=== PATIENT | female | born 1955 | race Caucasian/White ===

== ENCOUNTER → 2016-12-28 | Outpatient (CLI) | payer BC ==
[~2016-12-28] MED LIST: ACET-1311 PO; ATV5 PO
--- NOTE | 2016-12-28 13:25 | MAMMOGRAPHY REPORT ---
BILATERAL DIGITAL SCREENING MAMMOGRAM TOMOSYNTHESIS WITH CAD: 12/28/2016 CLINICAL HISTORY: Routine screening. Patient has no complaints. TECHNIQUE: Breast tomosynthesis in addition to standard 2D mammography was performed. Current study was also evaluated with a Computer Aided Detection (CAD) system. COMPARISON: Comparison is made to exams dated: 12/23/2015 mammogram, 12/14/2014 mammogram, 12/08/2013 mammogram, 12/05/2012 mammogram - [facility], 11/30/2011 mammogram, and 08/01/2010 mamm ogram - [facility]. BREAST COMPOSITION: There are scattered areas of fibroglandular density in both breasts. FINDINGS: No suspicious masses, calcifications, or areas of architectural distortion are noted in e ither breast. There has been no significant interval change compared to prior exams. IMPRESSION: ACR BI-RADS CATEGORY 1: NEGATIVE There is no mammographic evidence of malignancy. A 1 year screening mammogram is recommended. The p atient will receive written notification of the results. Approximately 10% of breast cancers are not detected with mammography. A negative mammographic repor t should not delay biopsy if a clinically suggestive mass is present. Linn Tamayo M.D. ah/:12/28/2016 07:50:25 Motor Vehicle Technician: Rula DE SOUZA(Olvin)(Neal), [facility] letter sent: Normal 1/2 BI-RADS Code: ACR BI-RADS Category 1: Negative
== END | disposition home or self-care (01) ==
LOC: C.MAMM 07:01
PROVIDERS: ATTEND Family Medicine
DX: Z12.31 Encounter for screening mammogram for malignant neoplasm of breast (principal)

== ENCOUNTER → 2017-01-23 | Outpatient (CLI) | payer BC | END | disposition home or self-care (01) | LOC: C.PAPS 11:30 | PROVIDERS: ATTEND Family Medicine | DX: Z01.419 Encounter for gynecological examination (general) (routine) without abnormal findings (principal) ==

== ENCOUNTER → 2018-01-03 | Outpatient (CLI) | payer BC ==
--- NOTE | 2018-01-03 08:02 | MAMMOGRAPHY REPORT ---
BILATERAL DIGITAL SCREENING MAMMOGRAM TOMOSYNTHESIS WITH CAD: 01/03/2018 CLINICAL HISTORY: Routine screening. Patient has no complaints. TECHNIQUE: Breast tomosynthesis in addition to standard 2D mammography was performed. Current study was also evaluated with a Computer Aided Detection (CAD) system. COMPARISON: Comparison is made to exams dated: 12/28/2016 mammogram, 12/23/2015 mammogram, 12/14/2014 ma mmogram, 12/08/2013 mammogram, 12/05/2012 mammogram - [facility], and 08/01/2010 mammog jose d - [facility]. BREAST COMPOSITION: There are scattered areas of fibroglandular density in both breasts. FINDINGS: No suspicious masses, calcifications, or areas of architectural distortion are noted in ei ther breast. There has been no significant interval change compared to prior exams. IMPRESSION: ACR BI-RADS CATEGORY 1: NEGATIVE There is no mammographic evidence of malignancy. A 1 year screening mammogram is recommended. The pa tient will receive written notification of the results. Approximately 10% of breast cancers are not detected with mammography. A negative mammographic report should not delay biopsy if a clinically suggestive mass is present. Linn Tamayo M.D. /:01/03/2018 07:34:27 Accountant Cost: Karen Quiroga, [facility] letter sent: Normal 1/2 BI-RADS Code: ACR BI-RADS Category 1: Negative
== END | disposition home or self-care (01) ==
LOC: C.MAMM 07:07
PROVIDERS: ATTEND Family Medicine
DX: Z12.31 Encounter for screening mammogram for malignant neoplasm of breast (principal)

== ENCOUNTER → 2018-01-24 | Outpatient (CLI) | payer BC, OTHER | END | disposition home or self-care (01) | LOC: C.PAPS 11:39 | PROVIDERS: ATTEND Family Medicine | DX: Z12.72 Encounter for screening for malignant neoplasm of vagina (principal) ==

== ENCOUNTER → 2018-02-05 | Outpatient (CLI) | payer BC, OTHER ==
[~2018-02-05] VITALS: Ht 168.9 cm; Wt 74.1 kg
[2018-02-05 15:28] VITALS: BP 132/77; PULSE 67; Ht 168.9 cm; Wt 74.1 kg
== END | disposition home or self-care (01) ==
LOC: C.NEUR 13:45
PROVIDERS: ATTEND Internal Medicine Pulmonary Disease
DX: G47.30 Sleep apnea, unspecified (principal); R06.83 Snoring; R06.89 Other abnormalities of breathing

== ENCOUNTER 2018-06-03 22:10 | Emergency (ER) | payer BC, OTHER ==
[~2018-06-03] VITALS: Ht 170.2 cm; Wt 75.5 kg
[2018-06-03 22:12] VITALS: TEMP 36.8; Ht 170.2 cm; Wt 75.5 kg
[2018-06-03] MEDS ORDERED: ATOR10TA82 PO (22:29)
[2018-06-03] MEDS ORDERED: ASPI81TA28 PO (22:31)
[2018-06-03] MEDS ORDERED: MULT-506 PO (22:32)
[2018-06-03] MEDS ORDERED: SODIUM CHLORIDE 0.9% 1000ML 1,000 ML IV STA (23:06)
--- NOTE | 2018-06-03 23:13 | EMERGENCY ROOM VISIT NOTE ---
History Report prepared by Karthik: Michelle Duran Under the Supervision of: Dr. Maurilio Jorge M.D. First contact with patient: 22:55 Chief Complaint: OTHER COMPLAINT Stated Complaint: JAW AND ARM PAIN History of Present Illness The patient is a 62 year old female who presents to the Emergency Room with complaints of intermittent left arm and jaw pain that started earlier today. The patient rates her discomfort an 8/10 in severity. She describes the pain as "pinching." She reports she woke up 2 days ago with a severe headache and then woke up yesterday with severe fatigue. She notes she would get up to walk around and then would lay down and fall asleep for about an hour. She states she called her PCP Dr. Christy and he told her it may be allergies and recommended that she rest. She reports she went to work today and again felt very fatigue. She notes today her left arm feels weak. She also complains of intermittent chest discomfort that she describes as "cramping." She states each episode would last about 20-25 minutes. She reports she took her cholesterol medication and a baby aspirin about 2 hours prior to arrival which gave her some relief. She denies a history of thyroid issues, high blood pressure, stroke , recent travels, or possible tick bites. 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 She denies a family history of stroke or heart attacks. The patient denies rhinorrhea, urinary symptoms, abdominal pain, diarrhea, swelling in ankles, or recent illnesses. Source of History: patient Onset: 2 days ago Position: jaw, arm (left) Symptom Intensity: 8/10 Quality: other (pinching) Timing: intermittent Associated Symptoms: + headache, + chest pain, + fatigue, No abdominal pain , No diarrhea, No urinary symptoms Review of Systems See HPI for pertinent positives & negatives. A total of 10 systems reviewed and were otherwise negative. 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 Social History Smoking Status: Never Smoker Current/Historical Medications Scheduled Aspirin (Aspirin Ec), 81 MG PO DAILY Atorvastatin (Lipitor), 10 MG PO DAILY Multivitamin (Multivitamin), 1 TAB PO DAILY Allergies Uncoded Allergies: NKDA (Allergy, Unknown, 12/11/02) Physical Exam Vital Signs Date Time Temp Pulse Resp B/P (MAP) Pulse Ox O2 Delivery O2 Flow Rate FiO2 06/04/18 03:50 68 17 95 06/04/18 03:31 137/81 06/04/18 03:20 60 13 95 06/04/18 02:50 62 12 94 06/04/18 02:33 115/82 06/04/18 00:50 71 14 97 06/04/18 00:45 71 96 06/04/18 00:31 125/91 06/04/18 00:15 66 13 96 06/04/18 00:10 63 16 96 Room Air 06/04/18 00:01 127/68 06/03/18 23:26 68 06/03/18 23:18 140/76 06/03/18 22:12 36.8 77 18 96 Room Air Physical Exam GENERAL: Patient is anxious appearing and in no acute distress. EYES: No scleral icterus, unremarkable pupils. ENT: Mucous membranes moist, no nasal congestion. NECK: No masses appreciated, no meningismus, trachea is midline. RESPIRATORY: No dyspnea. Clear to auscultation and equal bilaterally. No wheeze , no rhonchi. CARDIOVASCULAR: Regular rate and rhythm. No murmurs, rubs, gallops appreciated. GASTROINTESTINAL: Abdomen soft, nontender, no peritonitis. Bowel sounds positive. No masses appreciated. BACK: No midline tenderness, no CVA tenderness EXTREMITIES: Normal motion all extremities, no cyanosis, no edema. NEUROLOGIC: Alert and oriented, no acute motor or sensory deficits, no focal weakness, cranial nerves grossly intact. SKIN: No rash, no jaundice, no diaphoresis. Medical Decision & Procedures ER Provider Diagnostic Interpretation: X ray results are stated below per my interpretation: Chest: 1 view: No infiltrate, no effusion, normal cardiac border. Radiology results and stated below per my review and radiologist interpretation: CT HEAD: No current CT evidence for acute intracranial hemorrhage, edema/infarct, or mass effect. No evidence for acute disease in the visualized paranasal sinuses or mastoid air cells. Radiologist: Tarun Oropeza M.D. MRI HEAD: No evidence of acute infarct. No intracranial hemorrhage, mass effect, or edema. Radiologist: Diego Lundberg M.D. Laboratory Results 06/03/18 22:40 Red Blood Count 4.99, Mean Corpuscular Volume 88.4, Mean Corpuscular Hemoglobin 31.1, Mean Corpuscular Hemoglobin Concent 35.1, Mean Platelet Volume 10.7, Neutrophils (%) (Auto) 56.0, Lymphocytes (%) (Auto) 33.1, Monocytes (%) (Auto) 7.0, Eosinophils (%) (Auto) 3.0, Basophils (%) (Auto) 0.6, Neutrophils # (Auto) 3.77, Lymphocytes # (Auto) 2.23, Monocytes # (Auto) 0.47, Eosinophils # (Auto) 0.20, Basophils # (Auto) 0.04 06/03/18 22:40 Test 06/03/18 22:40 06/04/18 03:23 White Blood Count 6.73 K/uL (4.8-10.8) Red Blood Count 4.99 M/uL (4.2-5.4) Hemoglobin 15.5 g/dL (12.0-16.0) Hematocrit 44.1 % (37-47) Mean Corpuscular Volume 88.4 fL (80-100) Mean Corpuscular Hemoglobin 31.1 pg (25-34) Mean Corpuscular Hemoglobin Concent 35.1 g/dl (32-36) Platelet Count 279 K/uL (130-400) Mean Platelet Volume 10.7 fL (7.4-10.4) Neutrophils (%) (Auto) 56.0 % Lymphocytes (%) (Auto) 33.1 % Monocytes (%) (Auto) 7.0 % Eosinophils (%) (Auto) 3.0 % Basophils (%) (Auto) 0.6 % Neutrophils # (Auto) 3.77 K/uL (1.4-6.5) Lymphocytes # (Auto) 2.23 K/uL (1.2-3.4) Monocytes # (Auto) 0.47 K/uL (0.11-0.59) Eosinophils # (Auto) 0.20 K/uL (0-0.5) Basophils # (Auto) 0.04 K/uL (0-0.2) RDW Standard Deviation 42.6 fL (36.4-46.3) RDW Coefficient of Variation 13.3 % (11.5-14.5) Immature Granulocyte % (Auto) 0.3 % Immature Granulocyte # (Auto) 0.02 K/uL (0.00-0.02) D-Dimer 260 ug/L FEU (0-500) Anion Gap 8.0 mmol/L (3-11) Est Creatinine Clear Calc Drug Dose 55.4 ml/min Estimated GFR () 60.7 Estimated GFR (Non- 52.4 BUN/Creatinine Ratio 20.4 (10-20) Calcium Level 8.9 mg/dl (8.5-10.1) Phosphorus Level 3.3 mg/dl (2.5-4.9) Magnesium Level 2.3 mg/dl (1.8-2.4) Total Creatine Kinase 125 U/L (26-192) Creatine Kinase MB 2.1 ng/ml (0.5-3.6) Creatine Kinase MB Ratio 1.7 (0-3.0) Troponin I < 0.015 ng/ml (0-0.045) Lyme Disease IgG Antibody NEG (NEG) Lyme Disease IgM Antibody NEG (NEG) Bedside Troponin I < 0.030 ng/ml (0-0.045) Laboratory results as reviewed by me. Medications Administered Medications (Trade) Dose Ordered Sig/Niharika Route Start Time Stop Time Status Last Admin Dose Admin Sodium Chloride 1,000 ml @ 999 mls/hr Q1H1M STAT IV 06/03/18 23:06 06/04/18 00:06 DC 06/03/18 23:14 999 MLS/HR Lorazepam (Ativan Inj) 1 mg NOW STAT IV 06/04/18 00:31 06/04/18 00:33 DC 06/04/18 00:49 1 MG ECG Per My Interpretation Indication: chest pain Rate (beats per minute): 69 Rhythm: normal sinus Findings: no acute ischemic change, no ectopy Comparison ECG Date: 01/22/07 Change: When compared to previous morphology is similar. ED Course 2256: The patient was evaluated in room B3B. A complete history and physical exam was performed. 0030: I discussed MRI of head with the patient. She states she is very claustrophobic and would like her to be able to be there with her. 0305: I rechecked the patient. She is feeling better. Awaiting MRI report. 0355: Reevaluated the patient. She states she is feeling much better. Discussed results and discharge instructions: She verbalized understanding and agreement. I recommended the patient follow up with her PCP. The patient is ready for discharge. Medical Decision Differential: Sepsis, Infectious (UTI/Pneumonia/Meningitis/etc), Metabolic/ Electrolyte Abnormality, Cardiac, Dehydration, Anemia, Hepatic, Endocrine, Toxicologic, Neurologic, amongst other pathologies entertained. 62 yr old with fatigue and associated complaints of left arm heaviness, stabbing pinpoint pain left anterior lower jaw, headache yesterday, earlier left chest pain and just not feeling well. Exam benign without acute findings. EKG and initial Trop unremarkable. CT head negative. MRI brain negative ( ativan IV for claustrophobia.). Several hour repeat trop negative. She is in no distress and looks well. Mild BUn elevation which may be dehydration. Denies black/bloody stools. No significant headache now. No neuro deficits by exam. No head injury. With negative MRI and CT I do not feel LP warranted. May be viral process though no evidence it requires LP. No evidence ACS with 2 Trops 8+ hours post symptoms as negative. Dimer negative and without current cp , sob nor abnormal vitals I do not feel this is PE nor dissection. She is stable, looks well and in no distress. Advised PCP follow up and reviewed symptoms requiring RTED. Head Trauma GCS Score: 15 Medication Reconcilliation Current Medication List: was personally reviewed by me Blood Pressure Screening Patient's blood pressure: Normal blood pressure Impression Primary Impression: Arm paresthesia, left Additional Impressions: Fatigue Left sided chest pain Scribe Attestation The scribe's documentation has been prepared under my direction and personally reviewed by me in its entirety. I confirm that the note above accurately reflects all work, treatment, procedures, and medical decision making performed by me. Departure Information Dispostion Home / Self-Care Referrals Tamiko Christy DO (PCP) Patient Instructions My [facility] Additional Instructions No clear cause of you symptoms were found with normal CT and MRI of your brain, normal EKG and cardiac enzymes. Your other labs were unremarkable including d dimer, blood counts and electrolytes. It is important you follow up with your primary care provider for further evaluation and treatment of your symptoms. Return if weakness develops, severe headache, vomiting, passing out or other concerns. You have been examined and treated today on an emergency basis only. This is not a substitute for, or an effort to provide, complete comprehensive medical care. It is impossible to recognize and treat all injuries or illnesses in a single emergency department visit. It is therefore important that you follow up closely with your Primary Physician. Call as soon as possible for an appointment so you can review all labs, imaging and other testing that you had. Return to Emergency Department, call 911 or seek immediate medical attention if you feel your symptoms are worsening. Problem Qualifiers
[2018-06-03 23:15] LABS: BASO % 0.6 %; BASO ABS # 0.04 K/uL (0-0.2); HEMATOCRIT 44.1 % (37-47); HEMOGLOBIN 15.5 g/dL (12.0-16.0); IG# 0.02 K/uL (0.00-0.02); LYMPH % 33.1 %; LYMPH ABS # 2.23 K/uL (1.2-3.4); MEAN CELL VOLUME 88.4 fL (80-100); MEAN CORPUSCULAR HEMOGLOBIN 31.1 pg (25-34); MEAN CORPUSCULAR HGB CONC 35.1 g/dl (32-36); MEAN PLATELET VOLUME 10.7 fL (7.4-10.4); MONO ABS # 0.47 K/uL (0.11-0.59); NEUT ABS # 3.77 K/uL (1.4-6.5); PLATELET COUNT 279 K/uL (130-400); RED CELL DISTRIBUTION WIDTH CV 13.3 % (11.5-14.5); RED CELL DISTRIBUTION WIDTH SD 42.6 fL (36.4-46.3); WHITE BLOOD COUNT 6.73 K/uL (4.8-10.8)
[2018-06-03 23:38] LABS: BLOOD UREA NITROGEN 23 mg/dl (7-18); CALCIUM 8.9 mg/dl (8.5-10.1); CARBON DIOXIDE 28 mmol/L (21-32); CKMB 2.1 ng/ml (0.5-3.6); CREATININE 1.13 mg/dl (0.60-1.20); GLUCOSE 103 mg/dl (70-99); PHOSPHORUS 3.3 mg/dl (2.5-4.9); POTASSIUM 3.4 mmol/L (3.5-5.1); SODIUM 139 mmol/L (136-145)
[2018-06-04] MEDS ORDERED: LORAZEPAM 2 MG/ML 1 ML VIAL IV STA ×2 (00:31→01:31)
[2018-06-04 03:31] VITALS: BP 137/81
[2018-06-04 03:50] VITALS: PULSE 68; O2SAT 95
--- NOTE | 2018-06-04 06:29 | DIAGNOSTIC IMAGING REPORT ---
CHEST ONE VIEW PORTABLE CLINICAL HISTORY: Chest Pain pain COMPARISON STUDY: No previous studies for comparison. FINDINGS: The bones soft tissues and hemidiaphragms are normal. The cardiomediastinal silhouette is normal. The lungs are clear. The pulmonary vasculature is normal. IMPRESSION: Negative chest. The above report was generated using voice recognition software. It may contain grammatical, syntax or spelling errors. Electronically signed by: Roman Negro M.D. 06/04/2018 6:28 AM Dictated Date/Time: 06/04/2018 6:27 AM
--- NOTE | 2018-06-04 07:01 | DIAGNOSTIC IMAGING REPORT ---
CT SCAN OF THE BRAIN WITHOUT IV CONTRAST CLINICAL HISTORY: Left-sided headache. COMPARISON STUDY: No priors. TECHNIQUE: Unenhanced axial CT scan of the brain is performed from the vertex to the skull base. A dose lowering technique was utilized adhering to the principles of ALARA. CT DOSE: 537.48 mGy.cm FINDINGS: Brain parenchyma: The brain parenchyma is normal in appearance. There is no hemorrhage, mass effect, or evidence of acute territorial ischemia by CT criteria. Alvarado-white matter is preserved. No extra-axial fluid collection is seen. Ventricles, sulci, cisterns: Normal in configuration. Intracranial vasculature: The visualized intracranial vasculature at the skull base is normal in appearance. Calvarium: Unremarkable. Sinuses and mastoids: The visualized paranasal sinuses are clear. The mastoid air cells are well pneumatized. Orbits: The bony orbits are grossly intact. IMPRESSION: No acute intracranial abnormality. Electronically signed by: Rashid Melendez M.D. 06/04/2018 7:00 AM Dictated Date/Time: 06/04/2018 6:58 AM
--- NOTE | 2018-06-04 07:08 | DIAGNOSTIC IMAGING REPORT ---
MRI OF THE BRAIN WITHOUT IV CONTRAST CLINICAL HISTORY: Headache. Left arm weakness. COMPARISON STUDY: CT of the brain dated 06/03/2018. TECHNIQUE: MRI of the brain was performed utilizing various T1 and T2-weighted sequences in the axial, sagittal, and coronal planes. IV contrast was not administered for this examination. FINDINGS: Brain parenchyma: The brain parenchyma is normal in appearance. There is no hemorrhage or mass effect. There is no restricted diffusion to suggest acute ischemia. Alvarado-white matter differentiation is preserved. No extra-axial fluid collection is seen. The cerebellar tonsils are normal in configuration. Ventricles, sulci, and cisterns: Normal in configuration. Pituitary and sella: Unremarkable. Intracranial vasculature: Normal flow voids are maintained at the skull base. Orbits: The bony orbits are grossly intact. Orbital contents are normal in appearance. Sinuses and mastoids: Clear. Calvarium: Unremarkable. Cervical cord: Partially visualized cervical spinal cord is normal in morphology and signal intensity. IMPRESSION: No acute intracranial abnormality. Electronically signed by: Rashid Melendez M.D. 06/04/2018 7:06 AM Dictated Date/Time: 06/04/2018 7:03 AM
== END 2018-06-04 03:55 | disposition home or self-care (01) ==
LOC: C.EDB 22:11 → C.EDC 06-04 03:55
DX: R07.9 Chest pain, unspecified (principal); R20.2 Paresthesia of skin; R53.83 Other fatigue; R68.84 Jaw pain; F40.240 Claustrophobia; Z79.82 Long term (current) use of aspirin; Z86.2 Personal history of diseases of the blood and blood-forming organs and certain disorders involving the immune mechanism

== ENCOUNTER → 2018-06-19 | Outpatient (CLI) | payer BC, OTHER ==
[~2018-06-19] MED LIST changes: -ACET-1311 PO; +ASPI81TA28 PO; +ATOR10TA82 PO; -ATV5 PO; +MULT-506 PO
--- NOTE | 2018-06-19 10:36 | Exercise Stress Test Report ---
Exercise Stress Test Report Exercise Stress Test Report Date of Service: 06/19/2018 Exercise Stress Test Report Indication for TST: -- Pinching left arm and jaw pain. -- Fatigue. Duration of Study: -- 9:01 Minutes. Resting HR / BP: -- 59 bpm. -- 134/82 Peak HR / BP: -- 136 bpm. -- 196/75. Narrative: -- Patient exercised for 9:01 on a standard [place] Protocol attaining 85% MPHR and a 10.1 MET workload. -- Normal hemodynamic response to exercise. -- No exercise induced symptoms. Resting EKG: -- Sinus Bradycardia at 59 bpm, RSR' complex is present in V1 without QRS widening. Peak EKG: -- Sinus Tachycardia at 136 bpm, incomplete RBBB -- No ST segment changes or T wave abnormalities. CONCLUSION: -- No Evidence of Myocardial Ischemia by EKG criteria at 85% MPHR and 10.1 MET workload. -- Normal Hemodynamic response to exercise. -- No exercise induced chest pain, dyspnea, jaw pain or arm pain. -- No ectopy or arrhythmias were present during this study.
== END | disposition home or self-care (01) ==
LOC: C.CPL 09:09
PROVIDERS: ATTEND Family Medicine
DX: R07.9 Chest pain, unspecified (principal)